=== PATIENT | female | born 1975 | race Caucasian/White ===

== ENCOUNTER 2020-09-29 13:39 | Emergency (ER) | payer MEDICARE ==
[~2020-09-29] VITALS: Ht 162.6 cm; Wt 80.0 kg
[~2020-09-29 13:39] MED LIST: CLON2TAB PO; HYDR50TA99 PO; OXCA600T3 PO; OXYC1TAB17 PO; PROM25SU35 PR; SERT100T PO; ZOLP10TA PO
[2020-09-29] MEDS ORDERED: LORazepam 1MG TABLET ONE (14:07)
[2020-09-29 14:09] VITALS: BP 141/77
--- NOTE | 2020-09-29 14:09 | NUR ---
[employer] PER MAR.
--- NOTE | 2020-09-29 14:17 | NUR ---
REPORT GIVEN TO ALICJA ROGERS RN.
[2020-09-29] MEDS ORDERED: LORazepam 1MG TABLET PO ONE (14:30)
== END 2020-09-29 15:59 | disposition home or self-care (01) ==
LOC: ED 15:53
DX: F41.1 Generalized anxiety disorder (principal); R06.4 Hyperventilation; F32.9 Major depressive disorder, single episode, unspecified
CPT/HCPCS: 99283

== ENCOUNTER 2020-09-30 19:00 | Emergency (ER) | payer MEDICARE ==
[~2020-09-30] VITALS: Ht 162.6 cm; Wt 89.1 kg
--- NOTE | 2020-09-30 19:07 | NUR ---
PT BIB EMS FROM HOME FOR ANXIETY. PT WAS SEEN HERE YESTERDAY FOR ANXIETY AND GIVEN A HYDROXYZINE PRESCRIPTION AND TOOK 18 OF THEM ACCORDING TO EMS, PT REPORTS TAKING 1 PILL YESTERDAY AFTER OBTAINING PRESCRIPTION. PT IS NOTABLY ANXIOUS, REPORTS HX OF BIPOLAR AND STATES HYDROXYZINE IS NOT HELPING. PT CHANGED INTO GOWN, PLACED ON SPO2/BP/ECG MONITORING. WCTM
--- NOTE | 2020-09-30 20:06 | NUR ---
PT PROVIDED WATER FOR COMFORT NAD, DENIES ADDITIONAL NEEDS, STILL FEELS PANICKED. RESTING ON GURNEY, BED IN LOWEST, RAILS ENGAGED, CALL LIGHT ON LAP, WCTM. AWAITING ERP ORDERS
[2020-09-30] MEDS ORDERED: LORazepam 1MG TABLET ONE (20:26)
[2020-09-30] MEDS ORDERED: LORazepam 1MG TABLET PO ONE (20:30)
[2020-09-30 20:54] VITALS: BP 118/73
--- NOTE | 2020-09-30 20:55 | NUR ---
Patient given discharge instructions and they have confirmed that they understand the instructions. Patient ambulatory with steady gait. nad, denies additional questions or needs, verbalizes understanding to take pills as prescribed. no personal belongings left in room after dc.
== END 2020-09-30 21:17 | disposition home or self-care (01) ==
LOC: ED 20:57
DX: F41.1 Generalized anxiety disorder (principal); Z88.8 Allergy status to other drugs, medicaments and biological substances
CPT/HCPCS: 99283

== ENCOUNTER 2020-10-01 11:58 | Emergency (ER) | payer MEDICARE ==
[~2020-10-01] VITALS: Ht 162.6 cm; Wt 85.3 kg
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
[2020-10-01 12:58] LABS: BASOPHILS % (AUTO) 1 % (0-1); EOSINOPHILS % (AUTO) 4 % (1-7); LYMPHOCYTES % (AUTO) 24 % (22-44); MEAN CORPUSCULAR HEMOGLOBIN 30.1 pg (27.0-34.8); MEAN CORPUSCULAR HGB CONC 34.3 g/dL (32.4-35.8); MEAN PLATELET VOLUME 8.3 fL (7.4-10.4); MONOCYTES % (AUTO) 6 % (2-9); NEUTROPHILS % (AUTO) 66 % (42-75); PLATELET COUNT 345 x10^3/uL (130-400); RED BLOOD COUNT 4.98 x10^6/uL (3.82-5.3); RED CELL DISTRIBUTION WIDTH 14.3 % (9.6-15.2)
[2020-10-01 12:59] LABS: MD NO
[2020-10-01 13:11] LABS: ALBUMIN 4.5 g/dL (3.4-5.0); ANION GAP 8 mmol/L (5-15); CALCIUM 9.7 mg/dL (8.5-10.1); CHLORIDE 105 mmol/L (98-107)
[2020-10-01 13:17] LABS: ALANINE AMINOTRANSFERASE 30 U/L (12-78); ALKALINE PHOSPHATASE 84 U/L (45-117); BILIRUBIN,TOTAL 0.5 mg/dL (0.2-1.0); CREATININE 1.14 mg/dL (0.55-1.02); TOTAL PROTEIN 8.6 g/dL (6.4-8.2); TROPONIN I < 0.015 ng/mL (0.000-0.045)
--- NOTE | 2020-10-01 13:32 | NUR ---
PATIENT STILL FEELING ANXIOUS. SHE IS IN BED RAILS UP.
--- NOTE | 2020-10-01 14:05 | NUR ---
attempted to get ac iv x 3 and patient has difficult ac access. called ct scan, they will come assess 20 gauge in hand.
--- NOTE | 2020-10-01 14:49 | NUR ---
patient returned from ct.
[2020-10-01] MEDS ORDERED: OMNIPAQUE 350 MG/ML, 75ML BOTTLE ONE (14:56)
--- NOTE | 2020-10-01 14:58 | NUR ---
staci talking to patient. she continues to be very anxious.
[2020-10-01 15:56] VITALS: BP 142/92
--- NOTE | 2020-10-01 15:57 | NUR ---
discharge reviewed and shows understanding.
== END 2020-10-01 16:01 | disposition home or self-care (01) ==
LOC: ED 12:06
DX: R07.89 Other chest pain (principal); F41.1 Generalized anxiety disorder; F39 Unspecified mood [affective] disorder; R00.0 Tachycardia, unspecified; I10 Essential (primary) hypertension
CPT/HCPCS: 36415; 71045; 71275; 80053; 84484; 85025; 85379; 93005; 99285; Q0177; Q9967